=== PATIENT | female | born 1960 | race Caucasian/White ===

== ENCOUNTER 2017-10-09 16:54 | Outpatient (CLI) | payer BC | END 2017-10-09 16:55 | disposition home or self-care (01) | LOC: BICMAMMO 16:54 | PROVIDERS: ATTEND Obstetrics & Gynecology | DX: Z12.31 Encounter for screening mammogram for malignant neoplasm of breast (principal) | CPT/HCPCS: 77063; 77067 ==

== ENCOUNTER 2018-10-15 16:05 | Outpatient (CLI) | payer BC | END 2018-10-15 16:06 | disposition home or self-care (01) | LOC: BICMAMMO 16:05 | PROVIDERS: ATTEND Family Medicine | DX: Z12.31 Encounter for screening mammogram for malignant neoplasm of breast (principal) | CPT/HCPCS: 77063; 77067 ==

== ENCOUNTER 2020-03-05 13:17 | Outpatient (CLI) | payer BC ==
--- NOTE | 2020-03-05 15:45 | MMO ---
Bilateral MAMMO Bilat Screen [facility]. CLINICAL HISTORY: Patient is 60 years old and is seen for screening. The patient has no family history of breast cancer. The patient has no personal history of cancer. VIEWS: The views performed were: bilateral craniocaudal with tomosynthesis and bilateral mediolateral oblique with tomosynthesis. FILMS COMPARED: The present examination has been compared to prior imaging studies performed at [facility] on 10/09/2017 and 10/15/2018, and at [facility] on 03/31/2015 and 04/26/2016. This study has been interpreted with the assistance of computer-aided detection. MAMMOGRAM FINDINGS: There are scattered fibroglandular densities. There are no suspicious masses, suspicious calcifications, or new areas of architectural distortion. IMPRESSION: THERE IS NO MAMMOGRAPHIC EVIDENCE OF MALIGNANCY. A ROUTINE FOLLOW-UP MAMMOGRAM IN 1 YEAR IS RECOMMENDED. THE RESULTS OF THIS EXAM WERE SENT TO THE PATIENT. ACR BI-RADS Category 1 - Negative MAMMOGRAPHY NOTE: 1. A negative mammogram report should not delay a biopsy if a dominant of clinically suspicious mass is present. 2. Approximately 10% to 15% of breast cancers are not detected by mammography. 3. Adenosis and dense breasts may obscure an underlying neoplasm. Reported by: CORI STOCKTON MD Electonically Signed: [id number]
== END 2020-03-05 13:18 | disposition home or self-care (01) ==
LOC: BICMAMMO 13:17
PROVIDERS: ATTEND Obstetrics & Gynecology
DX: Z12.31 Encounter for screening mammogram for malignant neoplasm of breast (principal)
CPT/HCPCS: 77063; 77067

== ENCOUNTER 2021-08-29 11:44 | Emergency (ER) | payer BC | END 2021-08-29 14:15 | disposition home or self-care (01) | LOC: ERS 11:44 | DX: S52.125A Nondisplaced fracture of head of left radius, initial encounter for closed fracture (principal); S06.0X9A Concussion with loss of consciousness of unspecified duration, initial encounter; W07.XXXA Fall from chair, initial encounter | CPT/HCPCS: 99284 ==

== ENCOUNTER 2023-01-18 14:40 | Outpatient (CLI) | payer OTHER | END 2023-01-18 14:41 | disposition home or self-care (01) | LOC: SCSRAD 14:40 | PROVIDERS: ATTEND Family Medicine | DX: M47.26 Other spondylosis with radiculopathy, lumbar region (principal); M43.8X6 Other specified deforming dorsopathies, lumbar region | CPT/HCPCS: 72100 ==